=== PATIENT | female | born 1945 | race African-American/Black ===

== ENCOUNTER 2020-03-17 15:29 | Emergency (ER) | payer BC ==
--- NOTE | 2020-03-17 16:34 | ER Document Report ---
ED Medical Screen (RME) - General Chief Complaint: FALL Stated Complaint: FELL - FLANK/KNEE PAIN Notes: 74-year-old female with past medical history of hypertension, hyperlipidemia presenting today after a fall yesterday. She states that her legs just gave out on her. She fell in the parking lot of [email or web address]. She has pain to her right shoulder, right wrist, right chest and her left knee. She is not taking any blood thinners. Denies any shortness of breath or difficulty breathing. She did not hit her head. She has taken some type of efah-sxi-vabtecn medication for pain relief but she does not know what. Physical exam: Alert, oriented. Tenderness to palpation along the right AC joint. Tenderness to palpation along the anterior right wrist. Good bilateral radial pulses, capillary refill less than 2seconds, good sensation to light touch. Full range of motion of wrist. Tenderness to palpation along the right anterior chest wall. Lungs are clear to auscultation bilaterally. Left knee pain is tender along the posterior aspect, no pain with flexion or extension. Good dorsalis pedis pulses, cap refill less than 2 seconds, good sensation to light touch. I have greeted and performed a rapid initial assessment of this patient. A comprehesive ED assessment and evaluation of this patient, analysis of test results and completion of the medical decision-making process will be conducted by additional ED providers. - Related Data Allergies/Adverse Reactions: No Known Allergies Allergy (Verified 03/17/20 15:55) Home Medications: ROSUVASTATIN. TELMISARTAN. AMLODIPINE. METOPROLOL TART Past Medical History - Social History Chew tobacco use (# tins/day): No Frequency of alcohol use: None Drug Abuse: None Physical Exam - Vital signs Vitals: Temp Pulse Resp BP Pulse Ox 98.0 F 50 L 16 126/65 H 98 03/17/20 15:36 03/17/20 15:36 03/17/20 15:36 03/17/20 15:36 03/17/20 15:36 Course - Vital Signs Vital signs: Temp Pulse Resp BP Pulse Ox 98.0 F 50 L 16 126/65 H 98 03/17/20 15:56 03/17/20 15:36 03/17/20 15:36 03/17/20 15:36 03/17/20 15:36
--- NOTE | 2020-03-17 17:16 | RADIOLOGY REPORT (SQ) ---
EXAM DESCRIPTION: WRIST RIGHT 3 VIEWS IMAGES COMPLETED DATE/TIME: 03/17/2020 5:09 pm REASON FOR STUDY: fall COMPARISON: None. NUMBER OF VIEWS: Three views. TECHNIQUE: AP, lateral, and oblique radiographic images acquired of the right wrist. LIMITATIONS: None. FINDINGS: MINERALIZATION: Normal. BONES: No acute fracture or dislocation. No worrisome bone lesions. Normal alignment. SOFT TISSUES: No soft tissue swelling. No foreign body. OTHER: Mild degenerative joint changes in the 1st carpometacarpal joint. IMPRESSION: Mild degenerative joint changes. No acute finding. TECHNICAL DOCUMENTATION: JOB ID: [id number] 2010 [employer]- All Rights Reserved Reading location - IP/workstation name: [email or web address]
--- NOTE | 2020-03-17 17:17 | RADIOLOGY REPORT (SQ) ---
EXAM DESCRIPTION: SHOULDER RIGHT 2 OR MORE VIEWS IMAGES COMPLETED DATE/TIME: 03/17/2020 5:09 pm REASON FOR STUDY: fall COMPARISON: None. NUMBER OF VIEWS: Three views. TECHNIQUE: Internal rotation, external rotation, and Y view images acquired of the right shoulder. LIMITATIONS: None. FINDINGS: MINERALIZATION: Normal. BONES: No acute fracture. No worrisome bone lesions. JOINTS: There is bony overgrowth at the acromioclavicular joint. VISUALIZED LUNGS AND RIBS: No pneumothorax. No rib fracture. SOFT TISSUES: No radiopaque foreign body. OTHER: No other significant finding. IMPRESSION: Degenerative joint changes in the acromioclavicular joint. No acute osseous finding. TECHNICAL DOCUMENTATION: JOB ID: [id number] 2010 [employer]- All Rights Reserved Reading location - IP/workstation name: [email or web address]
--- NOTE | 2020-03-17 17:19 | RADIOLOGY REPORT (SQ) ---
EXAM DESCRIPTION: KNEE LEFT 4 VIEW IMAGES COMPLETED DATE/TIME: 03/17/2020 5:09 pm REASON FOR STUDY: fall COMPARISON: None. NUMBER OF VIEWS: Four views. TECHNIQUE: AP, lateral, and both oblique radiographic images acquired of the left knee. LIMITATIONS: None. FINDINGS: MINERALIZATION: Normal. BONES: No acute fracture or dislocation. No worrisome bone lesions. JOINT: Small joint effusion. Joint space narrowing with subchondral sclerosis in the medial joint co mpartment. Marginal osteophytes are present. There are prominent posterior patellar and trochlear o steophytes. SOFT TISSUES: No soft tissue swelling. No radio-opaque foreign body. OTHER: No other significant finding. IMPRESSION: Degenerative joint disease. Small joint effusion no fracture. TECHNICAL DOCUMENTATION: JOB ID: [id number] 2010 [employer]- All Rights Reserved Reading location - IP/workstation name: [email or web address]
--- NOTE | 2020-03-17 17:20 | RADIOLOGY REPORT (SQ) ---
EXAM DESCRIPTION: RIBS BILATERAL W/PA CXR IMAGES COMPLETED DATE/TIME: 03/17/2020 5:09 pm REASON FOR STUDY: fall COMPARISON: None. TECHNIQUE: Frontal view of the chest and additional views of the right and left ribs acquired. NUMBER OF VIEWS: Five views LIMITATIONS: None. FINDINGS: FRONTAL CXR: No pneumothorax. No pleural effusion. No atelectasis or infiltrates. RIBS: No displaced rib fractures. No lytic or blastic bony lesions. OTHER: No other significant finding. IMPRESSION: NO PNEUMOTHORAX. NO DISPLACED RIB FRACTURES. COMMENT: SITE OF TRAUMA/COMPLAINT MARKED/STAMP COMPLETED: NO. TECHNICAL DOCUMENTATION: JOB ID: [id number] 2010 [employer]- All Rights Reserved Reading location - IP/workstation name: [email or web address]
--- NOTE | 2020-03-17 20:48 | ER Document Report ---
ED General - General Chief Complaint: FALL Stated Complaint: FELL - FLANK/KNEE PAIN Information source: Patient, Relative Notes: Patient is a 74-year-old female presenting to the emergency department chief complaint of accidental fall resulting in multiple contusions. Patient states she was coming out of a store and walking and leg apparently just gave out. Patient denies chest pain palpitations dizziness shortness of breath prior to the fall. Patient's daughter at bedside stated that she did not believe there was any issues with the surface that they were walking on. Since the fall patient denies any loss of consciousness and is only complaining of multiple areas of mild to moderate pain. Patient denies nausea vomiting diarrhea fevers chills cough or cold symptoms. TRAVEL OUTSIDE OF THE [place] IN LAST 30 DAYS: No - HPI Onset: Just prior to arrival Onset/Duration: Sudden Quality of pain: Throbbing Severity: Moderate Pain Level: 2 Associated symptoms: None Exacerbated by: Standing, Movement, Walking Relieved by: Denies Similar symptoms previously: No Recently seen / treated by doctor: No - Related Data Allergies/Adverse Reactions: No Known Allergies Allergy (Verified 03/17/20 15:55) Home Medications: ROSUVASTATIN. TELMISARTAN. AMLODIPINE. METOPROLOL TART Past Medical History - General Information source: Patient - Social History Smoking Status: Never Smoker Chew tobacco use (# tins/day): No Frequency of alcohol use: None Drug Abuse: None Lives with: Family Family History: Reviewed & Not Pertinent Patient has suicidal ideation: No Patient has homicidal ideation: No - Past Medical History Cardiac Medical History: Reports: Hx Hypertension Past Surgical History: Reports: Hx Breast Surgery - biopsy, Hx Hysterectomy Review of Systems - Review of Systems Constitutional: No symptoms reported EENT: No symptoms reported Cardiovascular: No symptoms reported Respiratory: No symptoms reported Gastrointestinal: No symptoms reported Genitourinary: No symptoms reported Female Genitourinary: No symptoms reported Musculoskeletal: See HPI Skin: No symptoms reported Hematologic/Lymphatic: No symptoms reported Neurological/Psychological: No symptoms reported -: Yes All other systems reviewed and negative Physical Exam - Vital signs Vitals: Temp Pulse Resp BP Pulse Ox 98.0 F 50 L 16 126/65 H 98 03/17/20 15:36 03/17/20 15:36 03/17/20 15:36 03/17/20 15:36 09/23/20 15:36 - Notes Notes: PHYSICAL EXAMINATION: GENERAL: Well-appearing, well-nourished and in no acute distress. HEAD: Atraumatic, normocephalic. EYES: Pupils equal round and reactive to light, extraocular movements intact, sclera anicteric, conjunctiva are normal. ENT: nares patent, oropharynx clear without exudates. Moist mucous membranes. NECK: Normal range of motion, supple without lymphadenopathy, no appreciable JVD LUNGS: Lungs clear to auscultation bilaterally and equal. No wheezes rales or rhonchi. Patient has mild tenderness to the right ribs. HEART: Regular rate and rhythm without murmurs ABDOMEN: Soft, nontender, normal bowel sounds. No guarding, no rebound. No masses appreciated. EXTREMITIES: Patient has active full range of motion without limitation to the upper extremities bilaterally patient does complain of minimal pain to the right shoulder however no crepitus. Right lower extremity moves without difficulty. Left lower extremity has good flexion however on full extension there is some instability to the knee. Negative varus valgus negative anterior posterior draw. The patella is free-floating. Patient does complain of bilateral meniscal location pain. Patient has good flexion extension at the ankles. NEUROLOGICAL: No focal neurological deficits. Moves all extremities spontaneously and on command. SKIN: Warm, Dry, and intact. Normal turgor, no rashes or lesions noted. Course - Re-evaluation Re-evalutation: 03/17/20 20:47 I discussed the negative radiologic results with the patient and family member. At this point in time I feel most appropriate the patient should have a knee brace or immobilizer to the left knee because of the instability of the knee. They are agreeable with same. Patient will be given name of 1 of the local orthopedists for follow-up. Of note the patient states that this time that she is visiting from out of town/[place]. Patient is planning on returning to [place] in 2 to 3 weeks. Patient is informed to return to the emergency department for worsening symptoms. Tylenol Motrin as needed for discomfort. - Vital Signs Vital signs: Temp Pulse Resp BP Pulse Ox 98.0 F 50 L 16 126/65 H 98 03/17/20 15:56 03/17/20 15:36 03/17/20 15:36 03/17/20 15:36 03/17/20 15:36 - Diagnostic Test Radiology reviewed: Reports reviewed Discharge - Discharge Clinical Impression: Multiple contusions Accidental fall Qualifiers: Encounter type: initial encounter Qualified Code(s): W19.XXXA - Unspecified fall, initial encounter Knee buckling Qualifiers: Laterality: left Qualified Code(s): M25.362 - Other instability, left knee Condition: Stable Disposition: HOME, SELF-CARE Additional Instructions: Contusion Your injury has resulted in a contusion -- a crushing of the deep tissues. No injury to important structures was detected during the physician's exam. Contusions vary in the amount of pain they cause, and in the length of time required for healing. Typically, the area will become bruised, and will remain painful to touch for two or three weeks. However, most patients are back to working and playing within a few days. After the initial period of rest and cold-packs, your symptoms (together with the doctor's recommendations) will determine how rapidly you can get back to full activity. Usually this means "do what feels okay, but don't do things that hurt." If re-examination was recommended, it's important to follow up as instructed. Call the doctor or return any time if pain increases, if swelling becomes severe, if you develop numbness or weakness in an injured extremity, or if any other alarming symptoms occur. Referrals: NIKHIL SOTO JR, DO [ACTIVE PROVISIONAL STAFF] - Follow up as needed
[2020-03-17 21:47] VITALS: BP 136/73
== END 2020-03-17 21:46 | disposition home or self-care (01) ==
LOC: ER 15:29
DX: T14.8XXA Other injury of unspecified body region, initial encounter (principal); M25.511 Pain in right shoulder; M25.531 Pain in right wrist; R07.9 Chest pain, unspecified; W19.XXXA Unspecified fall, initial encounter; Y93.89 Activity, other specified; Y92.481 Parking lot as the place of occurrence of the external cause; M17.12 Unilateral primary osteoarthritis, left knee; M23.52 Chronic instability of knee, left knee; I10 Essential (primary) hypertension; E78.5 Hyperlipidemia, unspecified; Z79.899 Other long term (current) drug therapy
CPT/HCPCS: 71111; 99284